=== PATIENT | female | born 1960 | race Caucasian/White ===

== ENCOUNTER 2021-07-10 06:55 | Outpatient (CLI) | payer OTHER | END 2021-07-10 23:59 | disposition home or self-care (01) | LOC: CVU 06:55 → CFH 23:59 | PROVIDERS: ATTEND Internal Medicine Cardiovascular Disease | DX: I35.8 Other nonrheumatic aortic valve disorders (principal); I11.9 Hypertensive heart disease without heart failure; R06.02 Shortness of breath; R01.1 Cardiac murmur, unspecified | CPT/HCPCS: 78452; 93017; 93306; 93356; A9502 ==